=== PATIENT | male | born 1940 | race Asian ===

== ENCOUNTER 2023-02-20 11:40 | Emergency (ER) | payer MEDICARE, MEDICAID ==
[~2023-02-20] VITALS: Ht 172.7 cm; Wt 70.0 kg
[2023-02-20 11:46] VITALS: O2SAT 100
[2023-02-20] MEDS ORDERED: SODIUM CHLORIDE 0.9% 1,000 ML IV ONE (12:15)
[2023-02-20] MEDS ORDERED: ONDANSETRON HCL 4MG/2ML INJ IV STA (12:17)
[2023-02-20] MEDS ORDERED: MORPHINE SULFATE 4 MG/ML CPJ (NOT FOR IM USE) IV STA (12:17)
[2023-02-20 12:41] LABS: BASOPHILS % 0.6 % (0.0-2.0); EOSINOPHILS % 2.6 % (0.0-5.0); HEMATOCRIT. 34.6 % (42.0-52.0); HEMOGLOBIN. 11.4 g/dL (14.0-18.0); LYMPHOCYTES % 11.7 % (20.0-50.0); MEAN CORPUSCULAR HEMOGLOBIN 30.6 pg (28.0-32.0); MEAN CORPUSCULAR HGB CONC 32.9 g/dL (31.0-37.0); MEAN PLATELET VOLUME 8.7 fl (7.4-10.4); MONOCYTES % 6.9 % (2.0-8.0); NEUTROPHILS % 78.2 % (40.0-76.0); PLATELET 187 x1000/uL (130-400); RED BLOOD CELL COUNT 3.72 mill/uL (4.7-6.1); RED CELL DISTRIBUTION WIDTH 14.1 % (11.6-14.6); WHITE BLOOD COUNT 7.9 x1000/uL (4.5-11.0)
[2023-02-20 12:53] LABS: ALANINE AMINOTRANSFERASE 19 IU/L (10-49); ALBUMIN 3.6 g/dL (3.2-4.8); ASPARTATE AMINOTRANSFERASE 27 IU/L (<34); BILIRUBIN TOTAL 0.7 mg/dL (0.1-1.0); CALCIUM 8.2 mg/dL (8.7-10.4); CARBON DIOXIDE 24 mEq/L (21-32); CHLORIDE 110 mEq/L (98-107); CREATININE 1.2 mg/dL (0.6-1.3); GLUCOSE 172 mg/dL (70-105); POTASSIUM 4.4 mEq/L (3.5-5.1); PROTEIN TOTAL 5.9 g/dL (6.0-8.3); SODIUM 142 mEq/L (136-145); UREA NITROGEN BLOOD 18 mg/dL (9-23)
[2023-02-20 13:06] LABS: PARTIAL THROMBOPLASTIN TIME 23.6 sec (23.4-31.0); PROTHROMBIN TIME 10.5 sec (9.6-11.0)
[2023-02-20 13:09] LABS: TROPONIN I HIGH SENSITIVITY < 4 ng/L (3.0-53)
[2023-02-20] MEDS ORDERED: FAMO-135 PO (14:40)
[2023-02-20 15:24] VITALS: BP 135/76; PULSE 59; RESP 18; TEMP 98.7
== END 2023-02-20 15:25 | disposition home or self-care (01) ==
LOC: ER 11:40
DX: R10.13 Epigastric pain (principal); E78.00 Pure hypercholesterolemia, unspecified; Z98.890 Other specified postprocedural states
CPT/HCPCS: 99285; 74176; 96374; 76705; 71045; 96361; 96375; 80053; 83880; 83690; 85025; 85610; 85730; 84484; 36415; 93005; J2405; J2270; J7030